=== PATIENT | female | born 1985 | race Caucasian/White ===

== ENCOUNTER 2017-06-15 00:23 | Outpatient (CLI) | payer OTHER | END 2017-06-15 00:24 | disposition critical access hospital (66) | LOC: EMS 00:23 | PROVIDERS: ATTEND Surgery | DX: M25.562 Pain in left knee (principal); W18.39XA Other fall on same level, initial encounter; Y93.41 Activity, dancing; Y92.59 Other trade areas as the place of occurrence of the external cause | CPT/HCPCS: A0425; A0429 ==

== ENCOUNTER 2017-06-15 00:41 | Emergency (ER) | payer OTHER ==
--- NOTE | 2017-06-15 01:27 | XRAY Preliminary Report ---
Exam: XR KNEE 3 VIEW LT IMPRESSION: 1. No acute fracture or definite caleb dislocation seen. 2. Small joint effusion. [facility] SITE ID: [id number]
--- NOTE | 2017-06-15 01:30 | XRAY Report ---
EXAM: LEFT KNEE RADIOGRAPHY EXAM DATE: 06/15/2017 01:17 AM. CLINICAL HISTORY: Knee pain after injury. COMPARISON: None. TECHNIQUE: 3 views. FINDINGS: Bones: No acute fracture seen. Joints: No definite dislocation. No joint space narrowing. Small joint effusion. Soft Tissues: Mild soft tissue swelling. IMPRESSION: 1. No acute fracture or definite caleb dislocation seen. 2. Small joint effusion. [facility] Referring Provider Line: [phone] SITE ID: [id number]
--- NOTE | 2017-06-15 01:46 | ED Physician Documentation ---
PD HPI LOWER EXT INJURY - Stated complaint Stated Complaint: FALL - Chief complaint Chief Complaint: Ext Problem - History obtained from History obtained from: Patient, Family - History of Present Illness PD HPI LOW EXT INJURY LOCATION: Left, Knee Type of injury: Twist Where injury occurred: Other (bar) Timing - onset: How many minutes ago (45) Timing - details: Abrupt onset Improved by: Immobilization Worsened by: Moving, Palpating Associated symptoms: Swelling Contributing factors: No: Anticoagulated, Prior ortho surgery Similar symptoms before: Has not had sx before Recently seen: Not recently seen - Additional information Additional information: Patient is a 31 year old female with no significant past medical history who is presenting to the emergency department for knee pain. Patient states that she was dancing and it felt like her knee slid out of place. patient thought she dislocated her knee so she called ems. Upon initial evaluation patient appeared to have normal anatomy and there was no sign of dislocation. Review of Systems Constitutional: denies: Fever Eyes: denies: Loss of vision, Decreased vision Ears: reports: Reviewed and negative Nose: denies: Epistaxis Throat: denies: Dental pain / toothache Cardiac: denies: Chest pain / pressure, Palpitations Respiratory: reports: Reviewed and negative GI: reports: Reviewed and negative : reports: Reviewed and negative Skin: denies: Lesions, Abrasion (s), Laceration (s) Musculoskeletal: reports: Extremity pain, Joint pain, Extremity swelling, Joint swelling Neurologic: denies: Generalized weakness, Focal weakness, Numbness, Head injury Immunocompromised: denies: Immunocompromised PD PAST MEDICAL HISTORY - Past Medical History Past Medical History: No Cardiovascular: None Respiratory: None Neuro: None Endocrine/Autoimmune: None GI: None BEHAVIORAL SERVICES TECH: None : None HEENT: None Psych: None Musculoskeletal: None Derm: None - Past Surgical History Past Surgical History: Yes General: Appendectomy /BEHAVIORAL SERVICES TECH: Tubal ligation, Hysterectomy - Present Medications Home Medications: Ambulatory Orders Medication Instructions Recorded Confirmed No Known Home Medications [No 01/16/15 01/16/15 Known Home Medications] - Allergies Allergies/Adverse Reactions: Allergies Allergy/AdvReac Type Severity Reaction Status Date / Time levofloxacin Allergy Rash Verified 12/18/14 00:15 venom-honey bee Allergy Anaphylaxis Verified 12/18/14 00:15 [bee venom (honey bee)] - Social History Does the pt smoke?: No Smoking Status: Former smoker Does the pt drink ETOH?: No Does the pt have substance abuse?: No - Immunizations Immunizations are current?: Yes PD ED PE NORMAL - Vitals Vital signs reviewed: Yes - General General: Alert and oriented X 3, Well developed/nourished - HEENT HEENT: Atraumatic, PERRL - Neck Neck: Supple, no meningeal sign, No bony TTP - Cardiac Cardiac: RRR - Respiratory Respiratory: No respiratory distress - Abdomen Abdomen: Non distended - Derm Derm: Normal color, Warm and dry, No rash - Neuro Neuro: Alert and oriented X 3, No sensory deficit, Normal speech PD ED PE EXPANDED - Extremities Extremities: Left knee (tenderness and swelling of left knee, no gross abnormality) Results - Vitals Vitals: Vital Signs - 24 hr 06/15/17 06/15/17 00:46 02:25 Temperature 37.4 C Heart Rate 80 73 Respiratory 18 18 Rate Blood Pressure 114/67 106/57 L O2 Saturation 97 99 Oxygen O2 Source Room air - Rads (name of study) left knee x-ray Radiology: Final report received (no acute fracture or dislocation) PD MEDICAL DECISION MAKING - ED course Complexity details: reviewed old records, reviewed results, re-evaluated patient , considered differential, d/w patient, d/w family ED course: Patient was seen and examined at bedside. Patient was sent for imaging. when patient returned there was no acute fracture or dislocation. Patient was placed in a knee immobilizer and given crutches. Patient required no further work up and was stable for discharge with outpatient follow up. Departure - Departure Disposition: 01 Home, Self Care Clinical Impression: Sprain of left knee Condition: Good Instructions: ED Sprain Knee Follow-Up: primary,care provider [Other] - As Needed Comments: Your x-rays today were within normal limits. there was no acute fracture or dislocation. x-rays do not rule out any internal damage including ligaments or meniscus. you should take motrin or tylenol as needed for pain and ice your knee. You should strengthen your leg muscles. You should follow up with your pmd if your symptoms persist as mri would be the only imaging to check for soft tissue damage. Discharge Date/Time: 06/15/17 02:28
[2017-06-15] MEDS ORDERED: IBUPROFEN 600 MG TABLET PO STA (01:54)
[2017-06-15] MEDS ORDERED: IBUPROFEN 600 MG TABLET PO ONE (02:01)
[2017-06-15 02:28] VITALS: BP 106/57
== END 2017-06-15 02:28 | disposition home or self-care (01) ==
LOC: EDUNIT# → ED 00:41
DX: S83.92XA Sprain of unspecified site of left knee, initial encounter (principal); X50.3XXA Overexertion from repetitive movements, initial encounter; Y93.41 Activity, dancing; Y92.89 Other specified places as the place of occurrence of the external cause; Z87.891 Personal history of nicotine dependence
CPT/HCPCS: 29530; 73562; 99283; A9270